=== PATIENT | female | born 1990 | race Caucasian/White ===

== ENCOUNTER 2018-06-10 19:53 | Outpatient (CLI) | payer OTHER ==
[~2018-06-10] VITALS: Ht 154.9 cm; Wt 85.3 kg
[2018-06-10 20:05] VITALS: BP 131/79
[2018-06-10] MEDS ORDERED: BUPR300T43 PO (20:15)
[2018-06-10] MEDS ORDERED: ESCI10TA PO (20:15)
[2018-06-10] MEDS ORDERED: PREN-142 PO (20:15)
[2018-06-10 20:18] LABS: BILIRUBIN,URINE NEGATIVE (NEGATIVE); CLARITY,URINE CLEAR; COLOR,URINE YELLOW; GLUCOSE, URINE (UA) NEGATIVE (NEGATIVE); KETONES,URINE NEGATIVE (NEGATIVE); LEUKOCYTE ESTERASE ,URINE NEGATIVE (NEGATIVE); NITRITE,URINE NEGATIVE (NEGATIVE); PH,URINE 7 (5-9); PROTEIN,URINE NEGATIVE (NEGATIVE); UROBILINOGEN,URINE NORMAL (NORMAL)
[2018-06-10 20:26] LABS: BACTERIA,URINE TRACE /HPF; WBC,URINE 0-2 /HPF
[2018-06-11] MEDS ORDERED: IBUP-844 PO (09:39)
[2018-06-11] MEDS ORDERED: ACHD5005 PO (09:39)
[2018-06-11] MEDS ORDERED: DOCU100C37 PO (09:39)
== END 2018-06-10 21:25 | disposition home or self-care (01) ==
LOC: WSo 19:53 → LDRP 19:53 → WSo 21:25
PROVIDERS: ATTEND Obstetrics & Gynecology
DX: O47.1 False labor at or after 37 completed weeks of gestation (principal); Z3A.37 37 weeks gestation of pregnancy
CPT/HCPCS: 81000; 99213

== ENCOUNTER 2018-06-11 07:55 | Inpatient (IN) | payer OTHER ==
[~2018-06-11] VITALS: Ht 154.9 cm; Wt 84.8 kg
[~2018-06-11 07:55] MED LIST: BUPR300T43 PO; ESCI10TA PO; PREN-142 PO
[2018-06-11 08:15] VITALS: BP 135/74
[2018-06-11] MEDS ORDERED: ceFAZolin 2 GM IV Premixed 50 ML IV ONE (08:28)
--- NOTE | 2018-06-11 08:52 | History & Physical-OB ---
OB - Chief Complaint & HPI Date/Time Date of Admission: Date of Admission: Jun 11, 2018 at 08:27 Date seen by a Provider: Jun 11, 2018 Time Seen by a Provider: 08:55 Chief Complaint/History OB-Reason for Admission/Chief: Rupture of Membranes Hx : 3 Hx Para: 2 Expected Date of Delivery: Jun 30, 2018 Gestational Age in Weeks: 37 Gestational Age in Days: 2 Indication for : desires repeat Admission Nurse Assessment Rev: Yes History of Labs O pos Antibody neg RI RPR NR HBsAg NR HIV NR GC neg GBS pos Allergies and Home Medications Allergies Coded Allergies: Sulfa (Sulfonamide Antibiotics) (Verified Allergy, Unknown, RASH, 06/10/18) SKIN ROBLEDO cefdinir (Verified Allergy, Unknown, RASH, 06/10/18) SKIN ROBLEDO Home Medications Bupropion HCl 300 Mg Tab.er.24h, 300 MG PO DAILY, (Reported) Escitalopram Oxalate 10 Mg Tablet, 10 MG PO DAILY, (Reported) Vit No.124/Iron/FA 1 Each Tablet, 1 EACH PO DAILY, (Reported) Patient Home Medication List Home Medication List Reviewed: Yes OB - History Hx of Present Care: Yes Ultrasounds: Normal mid trimester US Obstetrical Complications: None Medical Complications: None Patient Past Medical History n/a Immunizations Date of Influenza Vaccine: Mar 14, 2018 OB - Admission Exam Physical Exam HEENT: NCAT Heart: Rhythm Normal Lungs: Clear Abdomen: Gravid Extremities: Normal Reflexes: Normal Amniotic Fluid: Clear Heart Rate: 130's Accelerations: Accelerations Present Decelerations: No Decelerations Short Term Variability: Present Jail Variability: Average (6-25) Contractions on Admission: 6-10 Minutes Apart Intensity: Mild OB - Assessment/Plan/Diagnosis Assessment Assessment: section Admission Dx 27 yo @ 37 weeks gestation SROM Previous x 2 Family history of Ovarian Ca GBS pos Admission Status: Inpatient Order (span 2 midnights) Reason for Inpatient Admission: 27 yo @ 37 weeks gestation SROM Previous x 2 Family history of Ovarian Ca GBS pos Plan Plan: Section GUSTAVO FREY DO Jun 11, 2018 08:52
[2018-06-11] MEDS ORDERED: metroNIDAZOLE 500MG/100ML IVPB 100 ML IV ONE (09:00)
[2018-06-11] MEDS ORDERED: FAMOTIDINE 20MG/2ML IV (PEPCID) IV ONE (09:00)
[2018-06-11] MEDS ORDERED: METOCLOPRAMIDE INJ 10 MG/2 ML (REGLAN) IV ONE (09:00)
[2018-06-11] MEDS ORDERED: CITRIC ACID/SOB CIT (BICITRA) 30 ML UDC PO ONE (09:00)
[2018-06-11] MEDS ORDERED: CATHETER FLUSH 10 ML SYR IV PRN (09:00)
[2018-06-11] MEDS ORDERED: CLINDAMYCIN 900 MG/50 ML IVPB 50 ML IV ONE (09:00)
[2018-06-11] MEDS ORDERED: BUPIVACAINE SPINAL 0.75% (SENSORCAINE) 2 ML AMP ONE ×2 (09:10→09:52)
[2018-06-11] MEDS ORDERED: fentaNYL INJECTION 100 MCG/2 ML AMP ONE (09:11)
[2018-06-11] MEDS ORDERED: OXYTOCIN/NORMAL SALINE 500 ML IV ONE ×2 (09:11→10:49)
[2018-06-11 09:13] LABS: BASOPHILS % (AUTO) 0 % (0-10); EOSINOPHILS # (AUTO) 0.2 10^3/uL (0.0-0.3); EOSINOPHILS % (AUTO) 2 % (0-10); HEMATOCRIT 35 % (35-52); HEMOGLOBIN 11.1 G/DL (11.5-16.0); LYMPHOCYTES # (AUTO) 2.7 X 10^3 (1.0-4.0); LYMPHOCYTES % (AUTO) 25 % (12-44); MEAN CORPUSCULAR HEMOGLOBIN 29 PG (25-34); MEAN CORPUSCULAR HGB CONC 32 G/DL (32-36); MEAN CORPUSCULAR VOLUME 89 FL (80-99); MEAN PLATELET VOLUME 9.7 FL (7.4-10.4); MONOCYTES # (AUTO) 0.9 X 10^3 (0.0-1.0); MONOCYTES % (AUTO) 8 % (0-12); NEUTROPHILS # (AUTO) 7.1 X 10^3 (1.8-7.8); NEUTROPHILS % (AUTO) 65 % (42-75); PLATELET COUNT 264 10^3/uL (130-400); RED BLOOD COUNT 3.88 10^6/uL (4.35-5.85); RED CELL DISTRIBUTION WIDTH 14.8 % (10.0-14.5); WHITE BLOOD COUNT 10.9 10^3/uL (4.3-11.0)
[2018-06-11] MEDS ORDERED: OXYTOCIN/NORMAL SALINE 500 ML IV SCH (09:20)
[2018-06-11] MEDS ORDERED: ONDANSETRON 4 MG/2 ML (SDV) Z0FRAN IVP PRN (09:30)
[2018-06-11] MEDS ORDERED: MEASLES,MUMPS,RUBELLA 1 EA INJ SC SCH (09:30)
[2018-06-11] MEDS ORDERED: IBUPROFEN 600 MG (MOTRIN) TAB PO SCH (09:30)
[2018-06-11] MEDS ORDERED: TETANUS,DIPTH,PERTUSS P/F (BOOSTRIX) 0.5 ML VIAL IM SCH (09:30)
--- NOTE | 2018-06-11 09:38 | Discharge Inst-Women's Service ---
Discharge Inst-Women's Serv Depart Medication/Instructions New, Converted or Re-Newed RX: RX on Chart Final Diagnosis POD2 RLTCS w/ RRS Consults/Follow Up Additional Follow Up: Yes Orders/Referrals Dr. Castrejon in 7-10 days Activity Activity: Activity as Tolerated Driving Instructions: No Driving for 1 Week NO SMOKING: NO SMOKING Nothing Inside Vagina: No Douching, No [place], No Tampons Diet Discharge Diet: No Restrictions Symptoms to Report to : Bleeding Excessive, Pain Increased, Fever Over 101 Degrees F, Vaginal Bleeding Increase, Questions/Concerns For Any Problems or Questions: Contact Your Physician Skin/Wound Care Infection Signs and Symptoms: Increased Redness, Foul Odor of Wound, Increased Drainage, Skin Itchy or Has a Rash, Increased Swelling, Temperature Above 101 F Operative Area Clean and Dry: Keep Incision Clean/Dry Stitches/Enrique/Dermabond: Dermabond, Care of Stitches Bathing Instructions: GUSTAVO Rodriguez DO Jun 11, 2018 09:38
[2018-06-11] MEDS ORDERED: IBUP-844 PO (09:39)
[2018-06-11] MEDS ORDERED: DOCU100C37 PO (09:39)
[2018-06-11] MEDS ORDERED: ACHD5005 PO (09:39)
[2018-06-11] MEDS ORDERED: LIDOCAINE PF 2% 5 ML (XYLOCAINE) VIAL ONE (09:52)
[2018-06-11] MEDS ORDERED: ROPIVACAINE 5MG/ML 30ML VIAL ONE (10:35)
[2018-06-11] MEDS: KETOROLAC 30 MG/ML VIAL IVP SCH ×2 (11:05→17:35)
[2018-06-11 12:40] VITALS: BP 117/70
[2018-06-11] MEDS: HYDROcodone/APAP 5 MG/325 MG (LORTAB) TAB PO PRN ×2 (12:49→17:36)
--- NOTE | 2018-06-11 13:15 | OPERATIVE REPORT ---
DATE OF SERVICE: 06/11/2018 PREOPERATIVE DIAGNOSES: 1. A 27-year-old G3, P2 at 37 weeks and 2 days' gestation. 2. Family history of ovarian cancer. 3. Spontaneous rupture of membranes. 4. Previous section x2. 5. Group B streptococcus positive. POSTOPERATIVE DIAGNOSES: 1. A 27-year-old G3, P2 at 37 weeks and 2 days' gestation. 2. Family history of ovarian cancer. 3. Spontaneous rupture of membranes. 4. Previous section x2. 5. Group B streptococcus positive. PROCEDURE PERFORMED: Repeat low transverse section with bilateral risk reducing salpingectomy. SURGEON: Davion Frey DO. ANESTHESIA: Spinal. ESTIMATED BLOOD LOSS: 500 mL. URINE OUTPUT: 200 mL clear at the end of the procedure. FLUIDS: 2000 mL of lactated Ringer solution. FINDINGS: A live male infant, weighing 7 pounds 15 ounces, Apgars of 2, 5 and 7. Grossly normal appearing uterus, bilateral fallopian tubes and ovaries. Dense scar tissue of the abdominal wall adipose tissue. SPECIMENS SENT: Bilateral fallopian tubes and placenta. INDICATIONS: This 27-year-old female was a late transfer of care at 34 weeks to my care service. In care, I was able to area counselor the patient by repeat as well as the fact that the patient did not desire any further childbearing and had a significant risk for ovarian cancer due to her family history and she would like bilateral risk reducing salpingectomy. She was counseled extensively about all of this prior to surgery of risks, benefits and alternatives. We also discussed the possibility of blood transfusion and significant blood loss situations. We discussed the risk of anesthesia and the fact that she would no longer be able to conceive. She was okay with this. Consent was obtained in my office and again in the preoperative area. All of her questions were answered and she was taken to the operating room. OPERATIVE REPORT IN DETAIL: Once in the operating room, spinal anesthesia was found to be adequate, placed in supine position with a leftward tilt, prepped and draped in the normal sterile fashion. A Pfannenstiel skin incision was then made with a knife and carried down to underlying fascia using Bovie cautery. The fascial incision was then extended laterally using Bovie cautery. The superior edge of the fascial incision was then grasped with Esther clamps, tented upward and dissected off the underlying rectus muscles. The inferior aspect of the fascial incision was then grasped with Esther clamps, tented upward and dissected off the underlying rectus muscles. The rectus muscle was then dissected down the midline using sharp dissection, exposed the peritoneum, which I am able to enter bluntly and extended using sharp dissection and blunt dissection. Once adequate peritoneal access was obtained, I placed an Socrates ring retractor into the peritoneal incision. I made a low transverse incision to the vesicouterine peritoneum using the knife and bluntly dissected off the lower uterine segment. I then proceeded with myotomy until membranes were visualized at which point, I extended the lateral aspect of this incision using bandage scissors in a lateral and superior fashion. Clear fluid was noted at the time of rupture of membranes of the incision. I then find the in the vertex presentation. With gentle fundal pressure, the infant's head is elevated up to the incision where the nares and oropharynx were then bulb suctioned and the 's head was delivered through the incision. Nuchal cord was reduced x1. Anterior and posterior shoulder delivered. Infant was then brought to the operative field where the cord was doubly clamped and cut and infant was handed off to the waiting nurses and computer discovery teacher in attendance. Cord blood was collected. Three-vessel cord was intact. Fundus was delivered spontaneously thereafter. IV Pitocin was initiated to facilitate uterine contraction. Uterine fundus became firmer with bimanual massage. The uterus was then exteriorized and cleared of endometrial clots and debris. I then closed the uterine incision using #0 Vicryl suture in running locked fashion, second layer of imbricating #0 Monocryl was placed. Excellent hemostasis was noted after doing this. I then took my attention to the fallopian tubes where I performed the following dissection bilaterally starting at the proximal isthmic portion, I transected the fallopian tube using LigaSure device and transected using the LigaSure device. I then took this cautery vessel sealing LigaSure down the mesosalpinx and transecting it as I ago amputating the fallopian tube from its blood supply. Once this was done bilaterally, there was no active bleeding noted from any of my dissection planes. I placed the uterus back in the pelvis and copiously irrigated the pelvis using normal saline. Once again, no active bleeding noted from any of my dissection planes. I then placed Interceed antiadhesive over my low transverse incision and proceeded with closing the peritoneum using 3-0 Vicryl suture in running fashion. Rectus muscle reapproximated using 3-0 Vicryl suture and the fascia reapproximated using #0 Vicryl suture in running fashion. The skin was then reapproximated using 4-0 Monocryl in a running subcuticular. Dermabond was applied to incision, sterile dressing with adhesive white tape. The patient tolerated the procedure well and sent to recovery in stable condition. Lap and sponge counts were correct at the end of the procedure. Instrument count was correct as well. Clindamycin 900 mg and 500 mg of Flagyl given preoperatively for infection prophylaxis. Job ID: [id number] DocumentID: [id number] Dictated Date: 06/11/2018 10:53:43 Grocery Sacker Date: 06/11/2018 13:15:16 Dictated By: DAVION FREY DO
[2018-06-11] MEDS ORDERED: CATHETER FLUSH 10 ML SYR IV SCH (14:00)
[2018-06-11] MEDS: HYDROmorphone 2 MG/ML VIAL (DILAUDID) IV PRN ×2 (14:45→19:42)
[2018-06-11 14:53] VITALS: BP 109/65
[2018-06-11 18:00] VITALS: BP 112/78
[2018-06-11] MEDS: DOCUSATE SODIUM 100 MG (COLACE) CAP PO SCH (20:09)
[2018-06-11] MEDS ORDERED: buPROPion SR 150 MG (WELLBUTRIN SR) TAB PO SCH (21:00)
[2018-06-11 22:00] VITALS: BP 125/89
[2018-06-12] MEDS: KETOROLAC 30 MG/ML VIAL IVP SCH ×2 (00:12→05:55)
[2018-06-12] MEDS: HYDROcodone/APAP 5 MG/325 MG (LORTAB) TAB PO PRN ×3 (00:14→08:17)
[2018-06-12 02:14] VITALS: BP 116/78
[2018-06-12 05:16] LABS: BASOPHILS % (AUTO) 0 % (0-10); EOSINOPHILS # (AUTO) 0.2 10^3/uL (0.0-0.3); EOSINOPHILS % (AUTO) 1 % (0-10); HEMATOCRIT 34 % (35-52); HEMOGLOBIN 10.6 G/DL (11.5-16.0); LYMPHOCYTES # (AUTO) 2.9 X 10^3 (1.0-4.0); LYMPHOCYTES % (AUTO) 20 % (12-44); MEAN CORPUSCULAR HEMOGLOBIN 28 PG (25-34); MEAN CORPUSCULAR HGB CONC 31 G/DL (32-36); MEAN CORPUSCULAR VOLUME 90 FL (80-99); MEAN PLATELET VOLUME 9.9 FL (7.4-10.4); MONOCYTES % (AUTO) 7 % (0-12); NEUTROPHILS # (AUTO) 10.5 X 10^3 (1.8-7.8); NEUTROPHILS % (AUTO) 71 % (42-75); PLATELET COUNT 240 10^3/uL (130-400); RED BLOOD COUNT 3.75 10^6/uL (4.35-5.85); RED CELL DISTRIBUTION WIDTH 14.8 % (10.0-14.5); WHITE BLOOD COUNT 14.7 10^3/uL (4.3-11.0)
[2018-06-12 05:56] VITALS: BP 122/80
[2018-06-12 08:00] VITALS: BP 123/78
--- NOTE | 2018-06-12 08:07 | Postpartum Progress Note ---
Note Note Day # 1 Subjective: Patient is without complaints. Ambulating, voiding. Tolerating a regular diet without nausea or vomiting. Normal lochia. Pain is well controlled with oral pain medications. Pumping as was transferred to NICU. Objective: Vital Signs 06/12/18 05:56 Temp 97.0 Pulse 78 Resp 18 B/P (MAP) 122/80 (94) Pulse Ox 99 O2 Delivery Room Air Physical Exam: General - Alert and oriented, no apparent distress Abdomen - Soft, appropriately tender to palpation, non-distended, fundus firm at umbilicus Extremities - no edema, negative Edith's bilaterally Incision- c/d/i Assessment: POD 1 RLTCS w/RRS Acute blood loss anemia Plan: Routine care. Encourage breast feeding. Encourage ambulation. Ferrous sulfate supplementation. Plan for discharge later today due to transfer and patient stability. Vitals - Labs Vital Signs - I&O Vital Signs Date Time Temp Pulse Resp B/P (MAP) Pulse Ox O2 Delivery O2 Flow Rate FiO2 06/12/18 05:56 97.0 78 18 122/80 (94) 99 Room Air 06/12/18 02:14 97.7 79 18 116/78 (91) 99 Room Air 06/11/18 22:00 97.7 93 18 125/89 (101) 99 Room Air 06/11/18 18:00 98.2 85 18 112/78 (89) 99 Room Air 06/11/18 15:14 Room Air 06/11/18 14:53 98.1 95 20 109/65 (80) 98 Room Air 06/11/18 12:40 98.9 87 20 117/70 (86) 98 Room Air 06/11/18 08:15 99.3 103 18 135/74 (94) 99 Room Air I & O 06/12/18 07:00 Intake Total 1900 ml Output Total 1425 ml Balance 475 ml Labs Laboratory Tests 06/11/18 08:50: White Blood Count 10.9, Red Blood Count 3.88L, Hemoglobin 11.1L, Hematocrit 35, Mean Corpuscular Volume 89, Mean Corpuscular Hemoglobin 29, Mean Corpuscular Hemoglobin Concent 32, Red Cell Distribution Width 14.8H, Platelet Count 264, Mean Platelet Volume 9.7, Neutrophils (%) (Auto) 65, Lymphocytes (%) (Auto) 25, Monocytes (%) (Auto) 8, Eosinophils (%) (Auto) 2, Basophils (%) (Auto) 0, Neutrophils # (Auto) 7.1, Lymphocytes # (Auto) 2.7, Monocytes # (Auto) 0.9, Eosinophils # (Auto) 0.2, Basophils # (Auto) 0.0 06/12/18 05:10: White Blood Count 14.7H, Red Blood Count 3.75L, Hemoglobin 10.6L, Hematocrit 34L , Mean Corpuscular Volume 90, Mean Corpuscular Hemoglobin 28, Mean Corpuscular Hemoglobin Concent 31L, Red Cell Distribution Width 14.8H, Platelet Count 240, Mean Platelet Volume 9.9, Neutrophils (%) (Auto) 71, Lymphocytes (%) (Auto) 20, Monocytes (%) (Auto) 7, Eosinophils (%) (Auto) 1, Basophils (%) (Auto) 0, Neutrophils # (Auto) 10.5H, Lymphocytes # (Auto) 2.9, Monocytes # (Auto) 1.0, Eosinophils # (Auto) 0.2, Basophils # (Auto) 0.0 GUSTAVO FREY DO Jun 12, 2018 8:07 am
[2018-06-12] MEDS: DOCUSATE SODIUM 100 MG (COLACE) CAP PO SCH (08:17)
[2018-06-12 08:50] VITALS: BP 123/78
--- NOTE | 2018-06-12 09:45 | Anesthesia-Regional Post-Op ---
Regional Patient Condition Mental Status: Alert, Oriented x3 Circulation: Same as Pre-Op Headache: Absent Sensation: Full Recovery Motor Block: Absent Post Op Complications Complications None Follow Up Care/Instructions Patient Instructions None needed. Anesthesia/Patient Condition Patient is doing well, no complaints, stable vital signs, no apparent adverse anesthesia problems. No complications reported per nursing. D/C home per [facility] [place] Criteria: Yes SHAYE COOK CRNA Jun 12, 2018 09:45
== END 2018-06-12 08:50 | disposition home or self-care (01) | DRG 784 ==
LOC: WSo 07:55 → LDRP 08:01 → WSo 08:27 → LDRP 12:15
PROVIDERS: ADMIT Obstetrics & Gynecology; ATTEND Obstetrics & Gynecology
PROC: 0UT70ZZ Resection of Bilateral Fallopian Tubes, Open Approach (ICD-10-PCS; 2018-06-11)
PROC: 10D00Z1 Extraction of Products of Conception, Low, Open Approach (ICD-10-PCS; principal; 2018-06-11 09:29)
DX: O34.211 Maternal care for low transverse scar from previous cesarean delivery (principal); O99.03 Anemia complicating the puerperium; D62 Acute posthemorrhagic anemia; O69.81X0 Labor and delivery complicated by cord around neck, without compression, not applicable or unspecified; O99.343 Other mental disorders complicating pregnancy, third trimester; F32.9 Major depressive disorder, single episode, unspecified; O99.613 Diseases of the digestive system complicating pregnancy, third trimester; K21.9 Gastro-esophageal reflux disease without esophagitis; O99.820 Streptococcus B carrier state complicating pregnancy; Z80.41 Family history of malignant neoplasm of ovary; Z3A.37 37 weeks gestation of pregnancy; Z37.0 Single live birth
CPT/HCPCS: 36415; 85025; 86850; 86900; 86901; 87081; 90715; 94664; 99212